=== PATIENT | female | born 1975 | race Caucasian/White ===

== ENCOUNTER 2016-03-23 19:20 | Emergency (ER) | payer BC ==
[2016-03-23 19:28] VITALS: BP 131/65
[2016-03-23] MEDS ORDERED: LORazepam INJ* 2 MG/ML 1 ML VIAL IV PUSH ONE (20:02)
[2016-03-23 20:15] LABS: Hematocrit 38 % (35-47); Hemoglobin 12.7 g/dl (12.0-16.0); Mean Corpuscular HGB Conc 34 g/dl (31-36); Mean Corpuscular Hemoglobin 28 pg (27-31); Mean Corpuscular Volume 83 fL (80-97); Mean Platelet Volume 8 um3 (7.4-10.4); Red Blood Count 4.58 10^6/ul (4.0-5.4); Red Cell Distribution Width 15 % (10.5-15); White Blood Count 11.1 10^3/ul (3.5-10.8)
[2016-03-23 20:36] LABS: Albumin 4.3 g/dL (3.2-5.2); BUN/Creatinine Ratio 10.8 (8-20); Calcium 9.6 mg/dL (8.6-10.3); EGFR African American 86.3 (>60); EGFR Non-African American 67.1 (>60); Globulin 2.9 g/dL (2-4); Total Bilirubin 0.3 mg/dL (0.2-1.0); Total Protein 7.2 g/dL (6.4-8.9)
[2016-03-23 20:40] LABS: Potassium 2.7 mmol/L (3.5-5.0)
[2016-03-23] MEDS ORDERED: Potassium Chloride LIQUID* 20 MEQ PACKET PO ONE (20:40)
--- NOTE | 2016-03-23 21:21 | ED ---
Lelo Omer Erika, scribed for Oleg Jones MD on 03/23/16 at 2006 . 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 Pt reports that she first developed a headache, so took Tylenol. She then began to have difficulty breathing, which was not alleviated by an albuterol inhaler. She states she then developed some chest pain and hand and foot cramping. Now, patient feels somewhat improved, but still notes tingling in her fingers. Hx anxiety, asthma. - History of Current Complaint Chief Complaint: EDShortnessOfBreath Stated Complaint: DIFFICULTY BREATHING Hx Obtained From: Patient Onset/Duration: Gradual Onset, Lasting Hours, Still Present Timing: Constant Initial Severity: Moderate Current Severity: Moderate Pain Intensity: 0 Aggravating Factor(s): Nothing Associated Signs and Symptoms: SOB, Chest Pain Unrelated to Cough - Allergy/Home Medications Allergies/Adverse Reactions: Allergies Allergy/AdvReac Type Severity Reaction Status Date / Time No Known Allergies Allergy Verified 08/03/14 12:52 PMH/Surg Hx/FS Hx/Imm Hx Respiratory History: Reports: Hx Asthma Psychiatric History: Reports: Hx Anxiety - Surgical History Surgery Procedure, Year, and Place: Appendectomy. Bunion Infectious Disease History: No Infectious Disease History: Denies: Traveled Outside the [place] in Last 30 Days - Family History Known Family History: Positive: Hypertension, Diabetes - Social History Lives: With Family Alcohol Use: None Substance Use Type: Reports: None Smoking Status (MU): Never Smoked Tobacco Review of Systems Positive: Chest Pain Positive: Shortness Of Breath Musculoskeletal: Other - Hand and foot cramping Positive: Headache, Paresthesia - fingers All Other Systems Reviewed And Are Negative: Yes Physical Exam Triage Information Reviewed: Yes Vital Signs On Initial Exam: Initial Vitals Temp Pulse Resp BP Pulse Ox 97.8 F 84 20 131/65 100 03/23/16 19:21 03/23/16 19:21 03/23/16 19:21 03/23/16 19:21 03/23/16 19:21 Vital Signs Reviewed: Yes Appearance: Positive: Well-Appearing - anxious, No Pain Distress Skin: Positive: Warm Head/Face: Positive: Normal Head/Face Inspection Eyes: Positive: LULA ENT: Positive: Hearing grossly normal Respiratory/Lung Sounds: Positive: Clear to Auscultation, Breath Sounds Present Cardiovascular: Positive: Normal, RRR. Negative: Murmur Abdomen Description: Positive: Nontender, Soft Bowel Sounds: Positive: Present Musculoskeletal: Positive: Strength/ROM Intact Neurological: Positive: Sensory/Motor Intact, Normal Gait Psychiatric: Positive: Anxious Diagnostics - Vital Signs Vital Signs Temp Pulse Resp BP Pulse Ox 03/23/16 19:21 97.8 F 84 20 131/65 100 - Laboratory Lab Results: Lab Results 03/23/16 03/23/16 03/23/16 Range/Units 19:54 19:54 19:54 WBC 11.1 H (3.5-10.8) 10^3/ul RBC 4.58 (4.0-5.4) 10^6/ul Hgb 12.7 (12.0-16.0) g/dl Hct 38 (35-47) % MCV 83 (80-97) fL MCH 28 (27-31) pg MCHC 34 (31-36) g/dl RDW 15 (10.5-15) % Plt Count 299 (150-450) 10^3/ul MPV 8 (7.4-10.4) um3 Neut % (Auto) 55.9 (38-83) % Lymph % (Auto) 36.8 (25-47) % [place] % (Auto) 4.0 (1-9) % Eos % (Auto) 2.6 (0-6) % Baso % (Auto) 0.7 (0-2) % Absolute Neuts (auto) 6.2 (1.5-7.7) 10^3/ul Absolute Lymphs (auto) 4.1 (1.0-4.8) 10^3/ul Absolute Monos (auto) 0.4 (0-0.8) 10^3/ul Absolute Eos (auto) 0.3 (0-0.6) 10^3/ul Absolute Basos (auto) 0.1 (0-0.2) 10^3/ul Absolute Nucleated RBC 0.01 10^3/ul Nucleated RBC % 0 D-Dimer, Quantitative < 200 (Less Than 230) ng/mL Sodium 137 (133-145) mmol/L Potassium 2.7 L* (3.5-5.0) mmol/L Chloride 105 (101-111) mmol/L Carbon Dioxide 17 L (22-32) mmol/L Anion Gap 15 H (2-11) mmol/L BUN 10 (6-24) mg/dL Creatinine 0.93 (0.51-0.95) mg/dL Est GFR ( Amer) 86.3 (>60) Est GFR (Non-Af Amer) 67.1 (>60) BUN/Creatinine Ratio 10.8 (8-20) Glucose 121 H (70-100) mg/dL Calcium 9.6 (8.6-10.3) mg/dL Total Bilirubin 0.30 (0.2-1.0) mg/dL AST 18 (13-39) U/L ALT 15 (7-52) U/L Alkaline Phosphatase 111 H (34-104) U/L Troponin I 0.00 (<0.04) ng/mL Total Protein 7.2 (6.4-8.9) g/dL Albumin 4.3 (3.2-5.2) g/dL Globulin 2.9 (2-4) g/dL Albumin/Globulin Ratio 1.5 (1-3) Result Diagrams: 03/23/16 19:54 03/23/16 19:54 Lab Statement: Any lab studies that have been ordered have been reviewed, and results considered in the medical decision making process. - EKG 19:32 Cardiac Rate: NL - at 72 bpm EKG Rhythm: Sinus Rhythm Re-Evaluation - Re-Evaluation First Eval Re-Evaluation Time: 21:18 Change: Improved Comment: Patient feels improved and will be discharged Disposition - Course Assessment/Plan: A 41 y/o F presents to the ED with a CC of SOB and hand and foot cramping and tingling. EKG shows NSR. Blood work revealed a potassium of 2.7, so patient was given potassium chloride in the ED. Patient reports a Hx of anxiety. She feels significantly improved in the ED, so will be discharged home with follow up from her PCP. - Diagnoses Provider Diagnoses: Anxiety, Hypokalemia Discharge - Discharge Plan Condition: Stable Disposition: HOME Patient Education Materials: Anxiety (ED), Hypokalemia (ED) Referrals: Margot Sterling MD [Primary Care Provider] - Additional Instructions: Please follow up with your PCP The documentation as recorded by the Lelo gavin Erika accurately reflects the service I personally performed and the decisions made by me, Oleg Jones MD.
== END 2016-03-23 21:30 | disposition home or self-care (01) ==
LOC: ED 19:20
DX: E87.6 Hypokalemia (principal); R06.02 Shortness of breath; F41.9 Anxiety disorder, unspecified; R07.9 Chest pain, unspecified; R05 Cough; R51 Headache
CPT/HCPCS: 36415; 80053; 84484; 85025; 85379; 93005; 96374; 99282; A9270-GY; J2060

== ENCOUNTER 2017-02-05 12:36 | Emergency (ER) | payer BC ==
[2017-02-05 12:54] VITALS: BP 122/73
--- NOTE | 2017-02-05 13:11 | UC ---
Skin Complaint HPI - History of Current Complaint Chief Complaint: UCSkin Time Seen by Provider: 02/05/17 12:53 Stated Complaint: SOFT TISSUE COMPLAINT Hx Obtained From: Patient Hx Last Menstrual Period: 01/10/17 ?: No Onset/Duration: Gradual Onset - had carpal tunnel surgery R hand 01/18/17. sutures removed on 01/28. things were good until 2-3 days ago when she started to experience redness, swelling and pain R hand/incision area, saw collette d/c x 1 Onset Severity: Mild Current Severity: Moderate Location: Hand (Right) Character: Swelling, Redness, Painful Aggravating Factor(s): Nothing Alleviating Factor(s): Nothing Associated Signs & Symptoms: Positive: Negative - Allergy/Home Medications Allergies/Adverse Reactions: Allergies Allergy/AdvReac Type Severity Reaction Status Date / Time No Known Allergies Allergy Verified 01/17/17 10:51 Review of Systems Constitutional: Negative Skin: Other - R hand swollen Respiratory: Negative Cardiovascular: Negative Neurovascular: Negative Musculoskeletal: Decreased ROM - R hand Neurological: Negative Psychological: Negative All Other Systems Reviewed And Are Negative: Yes PMH/Surg Hx/FS Hx/Imm Hx Previously Healthy: Yes Respiratory History: Asthma Psychological History: Depression - Surgical History Surgical History: Yes Surgery Procedure, Year, and Place: Appendectomy. Bunion. WISDOM TEETH REMOVED. carpel tunel - Family History Known Family History: Positive: Hypertension, Diabetes - Social History Occupation: Employed Full-time Lives: With Family Alcohol Use: None Substance Use Type: None Smoking Status (MU): Never Smoked Tobacco Physical Exam Triage Information Reviewed: Yes Appearance: Well-Appearing, No Pain Distress, Well-Nourished Vital Signs: Initial Vital Signs Temp 98.4 F 02/05/17 12:49 Pulse 75 02/05/17 12:49 Resp 18 02/05/17 12:49 BP 122/73 02/05/17 12:49 Pulse Ox 100 02/05/17 12:49 Vital Signs Reviewed: Yes Respiratory Exam: Normal Cardiovascular Exam: Normal Musculoskeletal: Positive: Strength Limited @ - R hand Neurological Exam: Normal Neurological: Positive: Alert Skin: Positive: Other - R palm (carpal tunnel inc.) erythemic, closed, with yellow scab, no fluctuance, no drainage Course/Dx - Differential Diagnoses - Skin Complaint Differential Diagnoses: Abscess, Cellulitis - Diagnoses Provider Diagnoses: skin infection Discharge - Discharge Plan Condition: Stable Disposition: HOME Prescriptions: Cephalexin CAP* [Keflex 500 CAP*] 500 mg PO QID #40 cap Fluconazole 150 MG (NF) [Diflucan 150 mg (NF)] 150 mg PO ONCE #1 tab Patient Education Materials: Wound Infection (ED) Referrals: Margot Sterling MD [Primary Care Provider] - Rehan Glass MD [Medical Doctor] - 2 Days (recheck) Additional Instructions: elevate your hand and apply heat take antibiotics as directed use diflucan if you experience vaginitis (yeast infection) Report to ER if your symptoms worsen at anytime or you develop a fever/chills
== END 2017-02-05 13:27 | disposition home or self-care (01) ==
LOC: UCEAST 12:36
DX: L08.9 Local infection of the skin and subcutaneous tissue, unspecified (principal)
CPT/HCPCS: 99212; G0463

== ENCOUNTER 2017-04-28 19:27 | Emergency (ER) | payer BC ==
[2017-04-28 20:13] VITALS: BP 148/99
--- NOTE | 2017-04-28 21:19 | UC ---
Niki Omer Julia, scribed for Osmin Apple MD on 04/28/17 at 2100 . General HPI - HPI Summary HPI Summary: This patient is a 42 year old F presenting to [facility] with a chief complaint of general malaise and fatigue for the past month. Patient reports intermittent temporal headache, rhinorrhea, green nasal discharge, neck pain, lower back pain , intermittent nausea, loose stool, and burning with urination once. Patient denies sinus pressure, sore throat, cough, wheezing, vaginal discharge, and rashes. Symptoms alleviated by Tylenol and Ibuprofen. - History of Current Complaint Chief Complaint: UCRespiratory Stated Complaint: fatigue, AND headache Time Seen by Provider: 04/28/17 20:49 Hx Obtained From: Patient Hx Last Menstrual Period: Mar 21, 2017 Onset/Duration: Lasting Weeks, Still Present Timing: Constant Pain Intensity: 0 Character: fatigue Alleviating: Tylenol and Ibuprofen Associated Signs & Symptoms: Positive: Other - intermittent temporal headache, rhinorrhea, green nasal discharge, neck pain, lower back pain, intermittent nausea, loose stool, and burning with urination once - Allergy/Home Medications Allergies/Adverse Reactions: Allergies Allergy/AdvReac Type Severity Reaction Status Date / Time No Known Allergies Allergy Verified 04/28/17 20:14 PMH/Surg Hx/FS Hx/Imm Hx Respiratory History: Asthma Psychological History: Anxiety, Depression - Surgical History Surgical History: Yes Surgery Procedure, Year, and Place: Appendectomy. Bunion. WISDOM TEETH REMOVED. carpel tunel - Family History Known Family History: Positive: Hypertension, Diabetes - Social History Alcohol Use: None Substance Use Type: None Smoking Status (MU): Never Smoked Tobacco Review of Systems Constitutional: Fatigue Skin: Negative ENT: Negative - sinus pressure, sore throat, Nasal Discharge Respiratory: Negative - wheezing, cough Gastrointestinal: Nausea, Other - loose stool Genitourinary: Negative - vaginal discharge, Dysuria - burning Musculoskeletal: Myalgia - lower back and neck pain Neurological: Headache All Other Systems Reviewed And Are Negative: Yes Physical Exam Triage Information Reviewed: Yes Vital Signs: Initial Vital Signs Temp 99.0 F 04/28/17 20:10 Pulse 71 04/28/17 20:10 Resp 18 04/28/17 20:10 BP 148/99 04/28/17 20:10 Pulse Ox 100 04/28/17 20:10 Vital Signs Reviewed: Yes - Additional Comments General: well-appearing, no pain distress Skin: warm, color reflects adequate perfusion, dry Head: normal Eyes: EOMI, LULA ENT: normal Neck: supple, nontender Respiratory: CTA, breath sounds present Cardiovascular: RRR Abdomen: soft, nontender Bowel: present Musculoskeletal: normal, strength/ROM intact Neurological: normal, sensory/motor intact, A&O x3 Psychological: affect/mood appropriate Course/Dx - Course Course Of Treatment: BP noted and advised to follow up with PCP. FATIGUE MAY BE SECONDARY TO SINUSITIS. WILL TREAT FOR SINUSITIS. ALSO, WILL CHECK LABS FOR OTHER POSSIBLE CAUSES OF FATIGUE. F/U WITH PMD; GET RECHECKED IF WORSE. - Differential Dx - Multi-Symptom Provider Diagnoses: FATIGUE. SINUSITIS Discharge - Discharge Plan Condition: Stable Disposition: HOME Prescriptions: Amoxicillin/Clavulanate TAB* [Augmentin TAB 875*] 875 mg PO BID #20 tab Patient Education Materials: Sinusitis (ED), Fatigue (ED) Referrals: Margot Sterlign MD [Primary Care Provider] - Additional Instructions: FOLLOW UP WITH YOUR DOCTOR. CALL TOMORROW TO ARRANGE AN APPOINTMENT. YOUR LAB RESULTS ARE PENDING. GET RECHECKED FOR ANY WORSENING OF YOUR CONDITION OR QUESTIONS OR CONCERNS. Your blood pressure was elevated during todays visit; please follow up with your primary care provider within a week for further evaluation. The documentation as recorded by the Niki gavin Julia accurately reflects the service I personally performed and the decisions made by me, Osmin Apple MD.
[2017-04-29 10:39] LABS: ABS Basophils 0.1 10^3/ul (0-0.2); ABS Eosinophils 0.2 10^3/ul (0-0.6); ABS Lymphocytes 2.8 10^3/ul (1.0-4.8); ABS Monocytes 0.3 10^3/ul (0-0.8); ABS Neutrophils 6.1 10^3/ul (1.5-7.7); ABS Nucleated RBC 0 10^3/ul; Eosinophil % 2.5 % (0-6); Hematocrit 39 % (35-47); Hemoglobin 12.8 g/dl (12.0-16.0); Lymphocyte % 29.7 % (25-47); Mean Corpuscular HGB Conc 33 g/dl (31-36); Mean Corpuscular Hemoglobin 27 pg (27-31); Mean Corpuscular Volume 81 fL (80-97); Mean Platelet Volume 9 um3 (7.4-10.4); Nucleated Red Blood Cells % 0.1; Platelet Count 309 10^3/ul (150-450); Red Blood Count 4.76 10^6/ul (4.0-5.4); Red Cell Distribution Width 16 % (10.5-15); White Blood Count 9.6 10^3/ul (3.5-10.8)
[2017-04-29 10:58] LABS: EGFR Non-African American 66.8 (>60)
== END 2017-04-28 21:38 | disposition home or self-care (01) ==
LOC: UCEAST 19:27
DX: J32.9 Chronic sinusitis, unspecified (principal); R53.83 Other fatigue; J45.909 Unspecified asthma, uncomplicated; F41.9 Anxiety disorder, unspecified; F32.9 Major depressive disorder, single episode, unspecified
CPT/HCPCS: 36415; 80053; 84443; 85025; 86140; 86308; 86664; 86665; 99212; G0463

== ENCOUNTER 2018-07-13 08:38 | Emergency (ER) | payer BC ==
--- OUTSIDE RECORDS SUMMARY | 2018-07-13 08:46 | XMS REPORT | Continuity of Care Document ---
:1975 External Reference #:[id number] Author Name Antonino Jaeger M.D. Address [address] [place] [address] Care Team Providers Name Role Phone Margot Sterling M.D. Primary Care Physician Unavailable Payers Date Identification Numbers Payment Provider Subscriber Effective: 2011 Policy Number: [id number] / Of [employer] PayID: [id number] [address] [address] [place] [address] Advance Directives Description No Information Available Problems Date Description Provider Status Onset: 09/26/2017 Exacerbation of intermittent asthma Tasha Lombardo M.D. Active Onset: 12/18/2014 Allergic rhinitis due to pollen Prema Awan M.D. Active Onset: 12/18/2014 Allergic rhinitis due to animals Prema Awan M.D. Active Onset: 12/31/2011 Extrinsic asthma without status Prema Awan M.D. Active asthmaticus Onset: 12/31/2011 Atopic dermatitis Prema Awan M.D. Active Onset: 12/31/2011 Allergic rhinitis Prema Awan M.D. 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 Has central air Home Environment Unfinished Basement Home Environment The basement is damp Home Environment Does not use a dehumidifier Home Environment There are draperies in the home Home Environment The home is neil Home Environment The floors are wood Home Environment Uses propane gas heating Home Environment Uses baseboard heating Home Environment [place] Home Environment Water Source: Well Home Environment [age] years old, moved there in October Smoke-Free Home is smoke-free Smoke-Free Work is smoke-free Pets None 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 ETOH Use Rarely consumes alcohol Tobacco Use Start: Unknown Patient has never smoked Recreational Drug Use Never Used Drugs Allergies, Adverse Reactions, Alerts Description No Known Drug Allergies Medications Medication Date Status Form Strength Qnty SIG Indications Ordering Provider Xyzal Allergy 11/10/ Active Tablets 5mg 90tabs 1 by mouth Kyleigh 24HR 2017 every day GALE Harding-C Ventolin HFA 12/18/ Active Aerosol 108(90Base 1units 2 puffs J45.21 Prema Rafia 2014 ) mcg/Act inhalation Lv, every 4 M.D. hours as needed Amitriptyline 00/ Active Tablets 10mg Unknown HCL 0000 Sertraline HCL 00/ Active Tablets 100mg Unknown 0000 Lorazepam 00/ Active Tablets 0.5mg Unknown 0000 Arnuity Ellipta / Active Aerosol 100mcg/Act 30unit inhale 1 Kyleigh 0000 s puff by garcia Harding every HEAD TRIMMER-C day Immunizations Description No Information Available Vital Signs Date Vital Result Comment 06/26/2018 9:22am Height 65 inches 5'5" Weight 183.00 lb Weight 83.009 kg Respiratory Rate 18 /min Heart Rate 88 /min O2 % BldC Oximetry 98 % BP Systolic 124 mmHg BP Diastolic 82 mmHg Asthma Control Test 24 Fractional Exhaled Nitric Oxide 20 BMI (Body Mass Index) 30.4 kg/m2 03/02/2018 9:56am Height 65 inches 5'5" Weight 180.00 lb Weight 81.648 kg Respiratory Rate 20 /min Heart Rate 73 /min O2 % BldC Oximetry 97 % BP Systolic 105 mmHg BP Diastolic 66 mmHg Asthma Control Test 25 BMI (Body Mass Index) 30.0 kg/m2 11/10/2017 1:40pm Height 65 inches 5'5" Weight 173.00 lb Weight 78.473 kg Respiratory Rate 20 /min Heart Rate 67 /min O2 % BldC Oximetry 98 % BP Systolic 117 mmHg BP Diastolic 73 mmHg Asthma Control Test 25 BMI (Body Mass Index) 28.8 kg/m2 11/09/2017 2:50pm Height 65 inches 5'5" Weight 173.00 lb Weight 78.473 kg Respiratory Rate 20 /min Heart Rate 70 /min O2 % BldC Oximetry 98 % BP Systolic 108 mmHg BP Diastolic 68 mmHg Asthma Control Test 25 Fractional Exhaled Nitric Oxide 31 BMI (Body Mass Index) 28.8 kg/m2 09/26/2017 2:47pm Height 65 inches 5'5" Weight 170.00 lb Weight 77.112 kg Respiratory Rate 18 /min Heart Rate 64 /min O2 % BldC Oximetry 98 % BP Systolic 108 mmHg BP Diastolic 61 mmHg Asthma Control Test 20 Fractional Exhaled Nitric Oxide 75 BMI (Body Mass Index) 28.3 kg/m2 06/18/2015 8:43am Height 65 inches 5'5" Weight 174.00 lb Weight 78.926 kg Respiratory Rate 20 /min Heart Rate 68 /min O2 % BldC Oximetry 99 % BP Systolic 114 mmHg BP Diastolic 76 mmHg Asthma Control Test 22 BMI (Body Mass Index) 29.0 kg/m2 12/18/2014 11:42am Height 65.75 inches 5'5.75" Weight 172.00 lb Weight 78.019 kg Respiratory Rate 16 /min Heart Rate 70 /min O2 % BldC Oximetry 98 % BP Systolic 112 mmHg BP Diastolic 66 mmHg Asthma Control Test 22 BMI (Body Mass Index) 28.0 kg/m2 12/31/2011 2:29pm Height 65 inches 5'5" Weight 166.00 lb Weight 75.298 kg Respiratory Rate 20 /min Heart Rate 68 /min O2 % BldC Oximetry 98 % BP Systolic 108 mmHg BP Diastolic 62 mmHg BMI (Body Mass Index) 27.6 kg/m2 Results Description No Information Available Procedures Date Code Description Status 06/26/2018 00849 Nitric Oxide Gas Determination Completed 03/02/2018 48177 Pre PFT Completed 11/10/2017 90710 Pre PFT Completed 11/09/2017 36200 Nitric Oxide Gas Determination Completed 11/09/2017 85250 Nitric Oxide Gas Determination Completed 09/26/2017 13968 Nitric Oxide Gas Determination Completed 06/18/2015 28218 Pre PFT Completed 12/18/2014 53796 Pre PFT Completed 12/31/2011 45064 Skin Test Scratch # Of Units ____ Completed 12/31/2011 07340 Oxygen Level - Pulse Oximiter Completed 12/31/2011 95222 Pulmonary Function Test Completed Encounters Type Date Location Provider Dx Diagnosis Office Visit 06/26/2018 Selvin Harding J45.20 Mild intermittent 9:20a HEAD TRIMMER-C asthma, uncomplicated J30.81 Allergic rhinitis due to animal (cat) (dog) hair and dander J30.2 Other seasonal allergic rhinitis J30.1 Allergic rhinitis due to pollen Office Visit 03/02/2018 9:40a Rebeka Copeland30.1 Allergic rhinitis HEAD TRIMMER-C due to pollen J30.2 Other seasonal allergic rhinitis J30.81 Allergic rhinitis due to animal (cat) (dog) hair and dander J45.20 Mild intermittent asthma, uncomplicated Office Visit 11/10/2017 1:40p Rebeka Copeland30.1 Allergic rhinitis HEAD TRIMMER-C due to pollen J30.2 Other seasonal allergic rhinitis J30.81 Allergic rhinitis due to animal (cat) (dog) hair and dander J45.20 Mild intermittent asthma, uncomplicated Office Visit 09/26/2017 2:40p Rebeka Robison45.21 Mild intermittent M.D. asthma with (acute) exacerbation J30.1 Allergic rhinitis due to pollen J30.2 Other seasonal allergic rhinitis J30.81 Allergic rhinitis due to animal (cat) (dog) hair and dander Office Visit 06/18/2015 8:40a Rebeka Loo30.81 Allergic rhinitis M.D. due to animal (cat) (dog) hair and dander J30.2 Other seasonal allergic rhinitis J30.1 Allergic rhinitis due to pollen J45.20 Mild intermittent asthma, uncomplicated L20.9 Atopic dermatitis, unspecified Z68.29 Body mass index (BMI) 29.0-29.9, adult Z23 Encounter for immunization Office Visit 12/18/2014 11:40a Rebeka Loo30.81 Allergic rhinitis M.D. due to animal (cat) (dog) hair and dander J30.2 Other seasonal allergic rhinitis J30.1 Allergic rhinitis due to pollen J45.20 Mild intermittent asthma, uncomplicated Z68.28 Body mass index (BMI) 28.0-28.9, adult Z23 Encounter for immunization Office Visit 01/21/2012 3:40p [place] Prema Morataya Lv, 477.9 Rhinitis Allergic M.D. Cause Unspec 691.8 Dermatitis Atopic & Related Conditions Other 493.00 Asthma Extrinsic Unspecified Office Visit 12/31/2011 2:20p [place] Prema Morataya Lv, 477.9 Rhinitis Allergic M.D. Cause Unspec 691.8 Dermatitis Atopic & Related Conditions Other 493.00 Asthma Extrinsic Unspecified Plan of Treatment Future Appointment(s):12/25/2018 9:20 am - MICHAEL Bill at [id number]/2018 - GALE Bill-CJ45.20 Mild intermittent asthma, nbblvovwqwuofT77.81 Allergic rhinitis due to animal (cat) (dog) hair and zttnuiD09.2 Other seasonal allergic lvpwwzaqO83.1 Allergic rhinitis due to pollenRecommendations:Continue all medications as prescribed.Refrain from wearing perfumes/scented colognes while visitingour office. Continue the Nasacort 2 sprays daily Continue the Arnuity 1 puff daily Continue the Ventolin 2 puffs every 4 hours as needed for shortness of breath, chest congestion, wheezing or cough Monitor Albuterol use. If using more than 2x/week , please call the office as your asthma medications may need to be adjusted. Continue the Xyzal 1 daily Continue the nasal rinses with Alkalol. Discussed risks and benefits of immunotherapy. To keep Springtime pollen and mold spores at bay, we recommend the following: -Keep doors and windows closed. -Change clothes and shower before bed to remove pollen from hair and skin. - Limit outdoor time during peak pollen counts. -Replace your home's airfilters monthly. -Do not hang your laundry outside to dry.
[2018-07-13 08:50] VITALS: BP 121/79
--- NOTE | 2018-07-13 10:29 | UC ---
Elbow Pain - HPI Summary HPI Summary: CHIEF COMPLAINT and HPI: This is a 43-year-old healthy female who comes to the [facility] with complaint of left elbow and hand pain and swelling. This began 4 days ago after working in the garden. She was somewhat better and then worked in the garden again yesterday, less than 12 hours ago. Today, she comes with obvious swelling over the lateral aspect of the left elbow and discomfort when making a fist. Patient has trouble combing her hair, flexing at the elbow, carrying a tray. A NURSES NOTE REVIEWED: "reported doing lawn work over weekend and arrives today with swollen left elbow and hand. VITAL SIGNS REVIEWED. Within normal limits unless noted. BP systolic 121; patient is urgent emergent as cause of slight elevation. - History of Current Complaint Chief Complaint: UCUpperExtremity Stated Complaint: PAIN IN ELBOW SWOLLEN HAND Time Seen by Provider: 07/13/18 09:46 Hx Last Menstrual Period: 06/19/18 Pain Intensity: 2 - Allergies/Home Medications Allergies/Adverse Reactions: Allergies Allergy/AdvReac Type Severity Reaction Status Date / Time No Known Allergies Allergy Verified 07/13/18 08:50 PMH/Surg Hx/FS Hx/Imm Hx - Additional Past Medical History Additional PMH: PAST MEDICAL HISTORY is significantly positive for: asthma, anxiety, depression ; carpal tunnel. Chronic or recurrent medical problems include: noncontributory. VISIT HISTORY REVIEWED. Visits relevant to current complaint: none. . MEDICATION AND ALLERGY REVIEW contributory to current complaint: none. Anti-hypertensive medication: none. FAMILY HISTORY is positive for: hypertension, cardiovascular disease, diabetes. 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 - Surgical History Surgical History: Yes Surgery Procedure, Year, and Place: Appendectomy. Bunion. WISDOM TEETH REMOVED. carpel tunel - Family History Known Family History: Positive: Hypertension, Diabetes - Social History Alcohol Use: None Substance Use Type: None Smoking Status (MU): Never Smoked Tobacco Review of Systems All Other Systems Reviewed And Are Negative: Yes Constitutional: Negative: Fever Respiratory: Positive: Negative. Negative: Shortness Of Breath Cardiovascular: Positive: Negative. Negative: Palpitations Gastrointestinal: Positive: Negative. Negative: Abdominal Pain Musculoskeletal: Positive: Decreased ROM, Edema, Myalgia - LEFT ELBOW AND FOREARM Neurological: Positive: Negative Is Patient Immunocompromised?: No Physical Exam - Summary Physical Exam Summary: Appearance: The patient is well-appearing, is in no pain or distress, and is well-nourished. Eyes: Conjunctiva are clear. Pupils are equal and reactive to light and accommodation. Extra ocular muscle movement is intact. ENT: The hearing is grossly normal, the pharynx is normal, and the TMs are normal. There is no muffled or hoarse voice. No stridor. Neck: The neck is supple and there is no lymphadenopathy. Respiratory: The chest is nontender to palpation and without crepitus. The lungs are clear, there are normal breath sounds, and there is no respiratory distress. No wheezes, rales or rhonchi. Cardiovascular: Heart sounds reveal a regular rate and rhythm. There are no clicks, rubs or murmurs. There are no carotid bruits or thrills. Circulation is grossly intact. Abdomen: The abdomen is soft and nontender. There is no organomegaly. Bowel sounds are present and within normal limits. No point tenderness at McBurneys point. Musculoskeletal: Strength is intact. The patient moves all extremities. Mild swelling in the area of the left elbow as well as over the dorsum of the left hand. There is discomfort with flexion at the elbow and extension at the wrist. There is limitation of rotation at the wrist. Marketing And Outreach Coordinator is decreased and creates discomfort over the extensor tendons on the top of the hand going up the forearm. Neurological: The patient is alert. Motor and sensory are examination grossly intact. Speech is normal. Psychological: The patient displays age appropriate behavior Skin: Negative for rashes. Triage Information Reviewed: Yes Vital Signs: Initial Vital Signs Temp 98 F 07/13/18 08:47 Pulse 70 07/13/18 08:47 Resp 18 07/13/18 08:47 BP 121/79 07/13/18 08:47 Pulse Ox 100 07/13/18 08:47 Vital Signs Reviewed: Yes Elbow Pain Course/Dx - Course Course Of Treatment: CHIEF COMPLAINT and HPI: This is a 43-year-old healthy female who comes to the [facility] with complaint of left elbow and hand pain and swelling. This began 4 days ago after working in the garden. She was somewhat better and then worked in the garden again yesterday, less than 12 hours ago. Today, she comes with obvious swelling over the lateral aspect of the left elbow and discomfort when making a fist. Patient has trouble combing her hair, flexing at the elbow, carrying a tray. A NURSES NOTE REVIEWED: "reported doing lawn work over ty weekend and arrives today with swollen left elbow and hand. VITAL SIGNS REVIEWED. Within normal limits unless noted. BP systolic 121; patient is urgent emergent as cause of slight elevation. PAST MEDICAL HISTORY is significantly positive for: asthma, anxiety, depression ; carpal tunnel. Chronic or recurrent medical problems include: noncontributory. VISIT HISTORY REVIEWED. Visits relevant to current complaint: none. . MEDICATION AND ALLERGY REVIEW contributory to current complaint: none. Anti-hypertensive medication: none. FAMILY HISTORY is positive for: hypertension, cardiovascular disease, diabetes. 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 REVIEW OF SYSTEMS is significantly positive for left arm pain o/w negative. PHYSICAL EXAMINATION is significantly positive for: Mild swelling in the area of the left elbow as well as over the dorsum of the left hand. There is discomfort with flexion at the elbow and extension at the wrist. There is limitation of rotation at the wrist. Marketing And Outreach Coordinator is decreased and creates discomfort over the extensor tendons on the top of the hand going up the forearm. MEDICAL DECISION MAKING: (Differential Diagnosis; Tests; Final Diagnosis): This is a healthy 43-year-old female is suffering of pain to the left elbow, forearm and hand because of repetitive use from gardening. She does have a history of carpal tunnel. Her x-rays were read by the radiologist as within normal limits with the exception of soft tissue swelling. My diagnosis is extensor tendon strain and tendinitis in the area of the left elbow, forearm and hand. Tennis elbow. PLAN: Patient will use a sling for comfort, use ibuprofen for inflammation, warm moist heat. The morning, ice to the area during the day. MEDICATIONS REVIEWED. HYPERTENSION STATUS REVIEWED WITH PATIENT. Slight elevation of systolic pressure consistent with anxiety. - Differential Dx/Diagnosis Differential Diagnosis/HQI/PQRI: Cellulitis, Contusion, Fracture (Closed), Sprain, Strain, Tendonitis Provider Diagnosis: Tennis elbow syndrome Discharge - Sign-Out/Discharge Documenting (check all that apply): Patient Departure All imaging exams completed and their final reports reviewed: Yes - Discharge Plan Condition: Stable Disposition: HOME Patient Education Materials: Tennis Elbow (ED) Referrals: Margot Sterling MD [Primary Care Provider] - Additional Instructions: WE DISCUSSED: PLEASE SEEK CARE AT THE EMERGENCY DEPARTMENT IF SYMPTOMS WORSEN OR IF NEW SYMPTOMS DEVELOP. FOLLOW UP WITH YOUR PRIMARY CARE PHYSICIAN IF CONDITION CONTINUES BEYOND 3 DAYS WITHOUT IMPROVEMENT. We are open from 7 a.m. to 10 p.m. Call us with any questions or concerns. YOUR DIAGNOSIS IS: Tendinitis of the extensor tendons of your left elbow. This is a strain of your muscles and there attachments because of overuse and repetitive use. Use the sling and warm moist heat in the morning over the area and ice during the day. YOUR PRESCRIPTION RECOMMENDATION IS: none OTHER INSTRUCTIONS: Also elevate her arm when you go to sleep. Elevated on a pillow to decrease swelling. If you're sitting for long periods elevated your arm. For pain: Ibuprofen (Motrin and other brand names) 400-600mg PLUS acetaminophen (Tylenol and other brand names) 500mg - 1000mg every 8 hours. Maximum is 3 doses a day. If this dosage is required for more than 5 days, you should re-check with your doctor. The combination of these two over-the- counter medications can be more effective than each one taken alone. Please check with the pharmacist if you have questions about your allergies to these medications. - Billing Disposition and Condition Condition: STABLE Disposition: Home
== END 2018-07-13 10:40 | disposition home or self-care (01) ==
LOC: UCEAST 08:38
DX: M77.12 Lateral epicondylitis, left elbow (principal); M79.642 Pain in left hand; R03.0 Elevated blood-pressure reading, without diagnosis of hypertension; J45.909 Unspecified asthma, uncomplicated; F41.9 Anxiety disorder, unspecified; F32.9 Major depressive disorder, single episode, unspecified; Z82.49 Family history of ischemic heart disease and other diseases of the circulatory system; Z83.3 Family history of diabetes mellitus
CPT/HCPCS: 99212; G0463